=== PATIENT | male | born 1970 | race Caucasian/White ===

== ENCOUNTER → 2023-11-25 | Day surgery (SDC) | payer BC ==
[~2023-11-25] MED LIST: ACETAMINOPHEN/CODEINE 300MG - 30MG TAB ONE; ASPIRIN81 MG PO; BALANCE OF NATURE PO; CARBINOXAMINE MA4 MG PO; FENTANYL CITRATE/PF 100MCG/2 ML INJ ONE; FERROUS SULFAT324 MG PO; FISH OIL 1,0001 EAC7 PO; GLUCOSAMINE1000 MG PO; MIDAZOLAM HCL 2 MG/2 ML VIAL ONE; MONTELUKAST SOD10 MG PO; OLMESARTAN-HCT1 EACH PO; TESTOSTERONE IM; TRAZODONE HCL50 MG PO; VITAMIN B COMP1 EACH PO; VITAMIN D31250 MCG PO; ZETIA10 MG PO; ZINC30 M1 PO; [UNRECOGNIZED DRUG - OTHER] PO; [UNRECOGNIZED DRUG - OTHER] PO
[2023-11-25] MEDS: LACTATED RINGER'S 1,000 ML ONE (09:40)
[2023-11-25 13:31] VITALS: TEMP 97
[2023-11-25] MEDS: FENTANYL CITRATE/PF 100MCG/2 ML INJ IV ONE ×2 (13:39→13:45)
[2023-11-25] MEDS: ACETAMINOPHEN/CODEINE 300MG - 30MG TAB PO ONE (14:00)
[2023-11-25 14:20] VITALS: BP 120/88; PULSE 89; RESP 15; O2SAT 99
== END | disposition home or self-care (01) ==
LOC: OR 09:30
PROVIDERS: ATTEND Specialist
DX: G56.03 Carpal tunnel syndrome, bilateral upper limbs (principal); I10 Essential (primary) hypertension; E78.5 Hyperlipidemia, unspecified; F90.9 Attention-deficit hyperactivity disorder, unspecified type; Z79.82 Long term (current) use of aspirin; Z79.1 Long term (current) use of non-steroidal anti-inflammatories (NSAID); Z79.899 Other long term (current) drug therapy
CPT/HCPCS: 29848; 93005; J0690; J2250; J3010; J7121